=== PATIENT | male | born 1990 | race African-American/Black ===

== ENCOUNTER 2018-12-17 05:32 | Inpatient (IN) | payer MEDICAID ==
[~2018-12-17] VITALS: Ht 175.3 cm; Wt 57.2 kg
[2018-12-17] MEDS ORDERED: IV NORMAL SALINE 1000 ML BAG IV ONE (05:45)
[2018-12-17 06:13] LABS: BASOPHILS # (AUTO) 0.1 K/uL (0.0-8.0); BASOPHILS % (AUTO) 1.5 % (0.0-2.0); EOSINOPHILS # (AUTO) 0.2 K/uL (0.0-0.7); EOSINOPHILS % (AUTO) 2.4 % (0.0-7.0); HEMATOCRIT 34.8 % (36.7-47.1); HEMOGLOBIN 11.3 g/dL (12.5-16.3); LYMPHOCYTES # (AUTO) 1.8 K/uL (20.0-40.0); LYMPHOCYTES % (AUTO) 23.7 % (20.5-51.5); MEAN CORPUSCULAR HEMOGLOBIN 28.7 uug (23.8-33.4); MEAN CORPUSCULAR HGB CONC 32 g/dL (32.5-36.3); MEAN CORPUSCULAR VOLUME 88.6 fL (73.0-96.2); MONOCYTES # (AUTO) 0.7 K/uL (2.0-10.0); MONOCYTES % (AUTO) 9.6 % (0.0-11.0); NEUTROPHILS # (AUTO) 4.8 K/uL (1.8-8.9); NEUTROPHILS % (AUTO) 62.8 % (38.5-71.5); PLATELET COUNT (AUTO) 335 K/uL (152-348); RED BLOOD CELL COUNT(AUTO) 3.93 MIL/uL (4.06-5.63); WHITE BLOOD COUNT (AUTO) 7.6 K/uL (3.6-10.2)
--- NOTE | 2018-12-17 06:13 | NUR ---
IV removed by pt. Catheter intact and site benign. Pressure and 4x4 gauze applied to site. No bleeding noted.
[2018-12-17 06:23] LABS: POTASSIUM 4.3 mmol/L (3.5-5.1)
[2018-12-17 06:28] LABS: BILIRUBIN,DIRECT 0.1 mg/dL (0.0-0.2); BILIRUBIN,TOTAL 0.2 mg/dL (0.2-1.0); TOTAL PROTEIN, SERUM 8.1 g/dL (6.4-8.2)
[2018-12-17 06:31] LABS: ETHANOL < 3 MG/DL (0-0)
[2018-12-17 06:41] LABS: ACETAMINOPHEN < 2.0 ug/mL (10-30)
[2018-12-17 06:47] LABS: *BILIRUBIN,URIN NEGATIVE (NEGATIVE); *BLOOD, URINE NEGATIVE (NEGATIVE); *CLARITY,URINE CLEAR (CLEAR); *COLOR,URINE YELLOW (YELLOW); *KETONES,URINE NEGATIVE (NEGATIVE); *UROBILINOGEN,URINE 0.2 E.U./dl (NORMAL); LEUKOCYTE ESTERASE ,URINE NEGATIVE (NEGATIVE); NITRITE, URINE NEGATIVE (NEGATIVE); PH,URINE 6.5 (5.0-8.0); UGLUCOSE NEGATIVE (NEGATIVE)
[2018-12-17 07:01] LABS: *AMPHETAMINE, URINE NEGATIVE (NEGATIVE); *BARBITURATE, URINE NEGATIVE (NEGATIVE); *CANNABINOID, URINE NEGATIVE (NEGATIVE); *COCCAINE, URINE NEGATIVE (NEGATIVE); *OPIATE, URINE NEGATIVE (NEGATIVE); *PHENCYCLIDINE SCREEN,URINE NEGATIVE (NEGATIVE)
--- NOTE | 2018-12-17 07:27 | NUR ---
RECEIVED SHIFT REPORT FROM JESSIE DESIR. PT RESTING IN BED COMFORTABLY AT THIS TIME. LUISA RUBALCAVA, CRISIS UNIVERSITY DEMONSTRATOR, CALLED FOR PSYCH EVAL PER ER MD'S REQUEST. ETA 1 HOUR.
--- NOTE | 2018-12-17 07:59 | NUR ---
PT PROVIDED W/ A BREAKFAST MEAL TRAY.
--- NOTE | 2018-12-17 09:03 | NUR ---
LUISA RUBALCAVA, CRISIS JEWELRY CUTTER, IN ER FOR PT EVAL.
--- NOTE | 2018-12-17 09:31 | NUR ---
PAGED EPIC FOR PANEL CALL - AWAITING CALLBACK. ATTEMPT 1.
[2018-12-17] MEDS ORDERED: MORPHINE SULFATE 2 MG/1 ML DISP.SYRIN IV ONE (09:45)
[2018-12-17] MEDS ORDERED: MORPHINE SULFATE 2 MG/1 ML DISP.SYRIN ONE (09:46)
--- NOTE | 2018-12-17 09:51 | NUR ---
ER SPEAKING W/ EVERTON TAM ON PHONE RE PT'S ADMISSION.
--- NOTE | 2018-12-17 10:00 | NUR ---
ADMITTING REPORT GIVEN TO GALLITO DESIR.
--- NOTE | 2018-12-17 10:03 | NUR ---
Pt. admitted to [facility], under care of EVERTON TAM. Belongs List completed
[2018-12-17 10:30] VITALS: BP 122/72
--- NOTE | 2018-12-17 10:30 | NUR ---
patient got to the unit from er, sleeping in bed w/o any distress, VS are WNL but HR is a little high 105, patient asked to leave him along for few hours so he can rest. will follow up with adm. questions per request
[2018-12-17 11:12] VITALS: BP 118/80
[2018-12-17] MEDS ORDERED: Z GUARD REMEDY PASTE 57 GM TUBE TOP PRN (11:30)
[2018-12-17] MEDS ORDERED: ONDANSETRON 4 MG/2 ML VIAL IV PRN (11:30)
[2018-12-17] MEDS ORDERED: ACETAMINOPHEN 325 MG TABLET PO PRN (11:30)
[2018-12-17] MEDS ORDERED: MAGNESIUM HYDROXIDE 30 ML LIQUID UDC PO PRN (11:30)
[2018-12-17] MEDS ORDERED: ZOLPIDEM 5 MG TABLET PO PRN (11:30)
[2018-12-17] MEDS ORDERED: HYDROCODONE/APAP 5-325MG TABLET PO PRN (11:30)
[2018-12-17] MEDS: IV NS 1000 ML 1,000 ML IV PRN (12:51)
[2018-12-17] MEDS: MORPHINE SULFATE 2 MG/1 ML DISP.SYRIN IV PRN ×3 (12:52→21:06)
[2018-12-17 15:12] VITALS: BP 134/77
--- NOTE | 2018-12-17 18:25 | NUR ---
Patient is cooperative a/o 2, sometime gets dishevelled, complains of pain and points to his right pelvic area Care plan initiated No distress at the moment Safety reinforced
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
[2018-12-17 19:28] VITALS: BP 100/64
--- NOTE | 2018-12-17 20:50 | NUR ---
PIV PULLED OUT OF LEFT WRIST; CATHETER INTACT; REINSERTED PIV 22 GUAGE ON RIGHT HAND; PIV PATENT AND INTACT
--- NOTE | 2018-12-17 23:59 | NUR ---
IV SPREADSHEET RECONCILIATION REFLECTS THAT AN 1000 mL NS IVF RUNNING @ 75 mL/HR WAS HUNG AT 12:51 PM WITH NO FURTHER UPDATES PRIOR TO 7A-7P SHIFT. TOTAL RUN FROM 12:51 PM TO 19:00 WOULD BE 450mL. TOTAL NS IVF RUN FROM 19:00 to 23:59 375mL FOR A TOTAL OF 825mL Addendum: 12/18/18 at 0323 by HOLDEN CERVANTES RN IV SPREADSHEET RECONCILIATION REFLECTS THAT AN 1000mL BAG OF IVF RUNNING AT 75mL/HR WS HUNG AT 12:51 PM WITH NO FURTHER UPDATES FROM THE [id number] SHIFT ON THE IV SPREADSHEET. TOTAL IVF RUN FROM 12:51P UNTIL CHANGE OF SHIFT AT 19:00 WOULD BE 450mL. TOTAL NS IVF RUN FROM 19:00 TO 23:59 WAS 375mL, FOR A TOTAL OF 825mL FROM THE TIME NS IVF WERE HUNG AT 12:51PM TO 23:59PM
--- NOTE | 2018-12-18 02:00 | NUR ---
NOTIFIED BY PATIENT THAT RIGHT HAND PIV WAS DISLODGED. NURSE FOUND PIV LAYING ON PATIENT'S COMPLETELY INTACT. NEW 22 G PIV PLACED LATERAL TO ORIGINAL PIV ON THE PATIENT'S RIGHT HAND. PIV PATENT AND INTACT. Addendum: 12/18/18 at 0317 by HOLDEN CERVANTES RN NURSE WOUND PIV LAYING ON PATIENT'S BED COMPLETELY INTACT Addendum: 12/18/18 at 8 by HOLDEN CERVANTES RN NURSE FOUND PIV LAYING ON PATIENT'S BED COMPLETELY INTACT
[2018-12-18] MEDS: MORPHINE SULFATE 2 MG/1 ML DISP.SYRIN IV PRN ×2 (02:11→06:20)
[2018-12-18] MEDS: IV NS 1000 ML 1,000 ML IV PRN (02:16)
[2018-12-18 03:43] VITALS: BP 123/69
--- NOTE | 2018-12-18 05:00 | NUR ---
PATIENT SLEPT INTERMITTENLY THROUGHOUT SHIFT. ALL COMPLAINTS OF PAIN WERE IMMEDIATELY ADDRESSED WITH PRESCRIBED MEDICATION AND WITHIN THE PARAMETERS OF THE PRESCRIPTION. SNACKS WERE PROVIDED AT PATIENT'S REQUEST. ALL NURSING NEEDS MET PROMPTLY. CALL LIGHT WITHIN REACH AT ALL TIMES. ENCOURAGED PATIENT TO REQUEST ASSISTANCE WHEN NEEDING TO AMBULATE. ALL DUE MEDS GIVEN PRESCRIBED AND TOLERATED WELL.
[2018-12-18 05:24] LABS: BASOPHILS % (AUTO) 0.7 % (0.0-2.0); EOSINOPHILS # (AUTO) 0.2 K/uL (0.0-0.7); EOSINOPHILS % (AUTO) 2.9 % (0.0-7.0); HEMATOCRIT 34.3 % (36.7-47.1); HEMOGLOBIN 11.2 g/dL (12.5-16.3); LYMPHOCYTES # (AUTO) 2.2 K/uL (20.0-40.0); LYMPHOCYTES % (AUTO) 31.7 % (20.5-51.5); MEAN CORPUSCULAR HEMOGLOBIN 29.2 uug (23.8-33.4); MEAN CORPUSCULAR HGB CONC 33 g/dL (32.5-36.3); MONOCYTES # (AUTO) 0.5 K/uL (2.0-10.0); MONOCYTES % (AUTO) 7.6 % (0.0-11.0); NEUTROPHILS % (AUTO) 57.1 % (38.5-71.5); PLATELET COUNT (AUTO) 312 K/uL (152-348); RED BLOOD CELL COUNT(AUTO) 3.85 MIL/uL (4.06-5.63); WHITE BLOOD COUNT (AUTO) 6.9 K/uL (3.6-10.2)
[2018-12-18 05:40] LABS: CREATININE 1.1 mg/dL (0.6-1.3); MAGNESIUM 1.7 mg/dL (1.8-2.4); PHOSPHOROUS 4.6 mg/dL (2.5-4.9); POTASSIUM 3.9 mmol/L (3.5-5.1)
[2018-12-18 05:46] LABS: THYROID STIMULATING HORMONE 1.277 mIU/mL (0.358-3.740)
[2018-12-18 06:00] VITALS: BP 123/69
[2018-12-18] MEDS ORDERED: PANTOPRAZOLE SODIUM 40 MG TABLET.DR PO SCH (07:00)
[2018-12-18] MEDS: MAGNESIUM SULFATE/D5W 100 ML IV SCH ×2 (10:00→10:34)
[2018-12-18 11:09] VITALS: BP 125/75
--- NOTE | 2018-12-18 11:15 | NUR ---
PATIENT SAID THAT HE WANT TO LEAVE THE HOSPITAL, EDUCATION IS GIVEN ABOUT HIS OWN BENEFITS IF HE STAYS PATIENT STILL WAS VERY AGITATED AND HE SAID HE NEEDS TO GO TO GET HIS SUFF
[2018-12-18 11:19] VITALS: BP 125/75
--- NOTE | 2018-12-18 11:19 | NUR ---
PATIENT LEFT AMA, SAID THAT HE NEEDS TO GO TO GET HIS STUFF"ID AND FAMILY PHONE NUMBERS", HE WAS REFUSING TO TAKE HIS BP BUT REQ MORPHINE FOR PAIN. BEFORE GIVEN MORPHINE I HAD TO CHECK HIS BP. HE LEFT AND SIGNED AMA PAPERS NO DISTRESS TODAY NO COMPLAINS.
== END 2018-12-18 11:19 | disposition left against medical advice (07) | DRG 351 ==
LOC: ER 05:33 → MEDSURG3 10:04
PROVIDERS: ADMIT Hospitalist; ATTEND Hospitalist
DX: M25.551 Pain in right hip (principal); E43 Unspecified severe protein-calorie malnutrition; R26.2 Difficulty in walking, not elsewhere classified; W03.XXXA Other fall on same level due to collision with another person, initial encounter; Y92.89 Other specified places as the place of occurrence of the external cause; S32.82XD Multiple fractures of pelvis without disruption of pelvic ring, subsequent encounter for fracture with routine healing; S32.10XD Unspecified fracture of sacrum, subsequent encounter for fracture with routine healing; S32.049D Unspecified fracture of fourth lumbar vertebra, subsequent encounter for fracture with routine healing; S32.059D Unspecified fracture of fifth lumbar vertebra, subsequent encounter for fracture with routine healing; S22.42XD Multiple fractures of ribs, left side, subsequent encounter for fracture with routine healing; V89.2XXD Person injured in unspecified motor-vehicle accident, traffic, subsequent encounter; Z68.1 Body mass index [BMI] 19.9 or less, adult; Z91.19 Patient's noncompliance with other medical treatment and regimen; Z91.14 Patient's other noncompliance with medication regimen; M61.9 Calcification and ossification of muscle, unspecified; D64.9 Anemia, unspecified; Z87.891 Personal history of nicotine dependence; Z59.0 Homelessness
CPT/HCPCS: 36415; 70030-TC; 80307; 83690; 83735; 84100; 84443; 85025; 85730; 93005; A4663; G0378; G0480; G0480-TC; J2270; J3475; J7030

== ENCOUNTER 2018-12-20 17:22 | Inpatient (IN) | payer MEDICAID ==
[~2018-12-20] VITALS: Ht 172.7 cm; Wt 65.8 kg
[2018-12-20] MEDS ORDERED: HYDROMORPHONE 1 MG/1 ML DISP.SYRIN IV ONE (18:15)
[2018-12-20] MEDS ORDERED: ONDANSETRON 4 MG/2 ML VIAL IV ONE (18:15)
[2018-12-20] MEDS ORDERED: IV NORMAL SALINE 500 ML BAG IV ONE (18:15)
[2018-12-20] MEDS ORDERED: HYDROMORPHONE 1 MG/1 ML DISP.SYRIN ONE (18:33)
[2018-12-20] MEDS ORDERED: ONDANSETRON 4 MG/2 ML VIAL ONE (18:33)
[2018-12-20 18:45] LABS: BASOPHILS # (AUTO) 0.1 K/uL (0.0-8.0); BASOPHILS % (AUTO) 0.8 % (0.0-2.0); EOSINOPHILS # (AUTO) 0.2 K/uL (0.0-0.7); EOSINOPHILS % (AUTO) 2.5 % (0.0-7.0); HEMATOCRIT 33.8 % (36.7-47.1); LYMPHOCYTES # (AUTO) 2.5 K/uL (20.0-40.0); MEAN CORPUSCULAR HEMOGLOBIN 29.1 uug (23.8-33.4); MEAN CORPUSCULAR HGB CONC 33 g/dL (32.5-36.3); MEAN CORPUSCULAR VOLUME 89.1 fL (73.0-96.2); MONOCYTES # (AUTO) 0.7 K/uL (2.0-10.0); MONOCYTES % (AUTO) 9.5 % (0.0-11.0); NEUTROPHILS # (AUTO) 4.1 K/uL (1.8-8.9); NEUTROPHILS % (AUTO) 54.2 % (38.5-71.5); PLATELET COUNT (AUTO) 290 K/uL (152-348); WHITE BLOOD COUNT (AUTO) 7.5 K/uL (3.6-10.2)
[2018-12-20 18:57] LABS: CREATININE 0.9 mg/dL (0.6-1.3); POTASSIUM 3.5 mmol/L (3.5-5.1)
[2018-12-20 19:03] LABS: BILIRUBIN,DIRECT 0.1 mg/dL (0.0-0.2); BILIRUBIN,TOTAL 0.2 mg/dL (0.2-1.0); TOTAL PROTEIN, SERUM 7.4 g/dL (6.4-8.2)
[2018-12-20 20:29] VITALS: BP 124/76
[2018-12-20] MEDS ORDERED: ZOLPIDEM 5 MG TABLET PO PRN (21:00)
[2018-12-20] MEDS ORDERED: MAGNESIUM HYDROXIDE 30 ML LIQUID UDC PO PRN (21:00)
[2018-12-20] MEDS ORDERED: ACETAMINOPHEN 325 MG TABLET PO PRN (21:00)
[2018-12-20] MEDS ORDERED: LORAZEPAM 2 MG/1 ML VIAL IV PRN (21:00)
[2018-12-20] MEDS ORDERED: ONDANSETRON 4 MG/2 ML VIAL IV PRN (21:00)
[2018-12-20] MEDS: DOCUSATE SODIUM 100 MG CAPSULE PO SCH (21:00)
[2018-12-20] MEDS: HYDROMORPHONE 1 MG/1 ML DISP.SYRIN IV PRN (21:27)
[2018-12-20 21:29] LABS: *AMPHETAMINE, URINE NEGATIVE (NEGATIVE); *BARBITURATE, URINE NEGATIVE (NEGATIVE); *CANNABINOID, URINE NEGATIVE (NEGATIVE); *COCCAINE, URINE NEGATIVE (NEGATIVE); *OPIATE, URINE POSITIVE (NEGATIVE); *PHENCYCLIDINE SCREEN,URINE NEGATIVE (NEGATIVE)
[2018-12-20] MEDS: ENOXAPARIN SODIUM 40 MG/0.4 ML DISP.SYRIN SQ SCH (21:52)
[2018-12-21] MEDS: HYDROCODONE/APAP 5-325MG TABLET PO PRN ×4 (00:31→20:57)
[2018-12-21] MEDS: HYDROMORPHONE 1 MG/1 ML DISP.SYRIN IV PRN ×6 (01:37→23:40)
[2018-12-21] MEDS: PANTOPRAZOLE SODIUM 40 MG TABLET.DR PO SCH (06:04)
[2018-12-21 06:35] VITALS: BP 141/68
[2018-12-21 06:39] LABS: BASOPHILS # (AUTO) 0.1 K/uL (0.0-8.0); BASOPHILS % (AUTO) 1.1 % (0.0-2.0); EOSINOPHILS # (AUTO) 0.2 K/uL (0.0-0.7); EOSINOPHILS % (AUTO) 3.7 % (0.0-7.0); HEMATOCRIT 34.4 % (36.7-47.1); HEMOGLOBIN 11.4 g/dL (12.5-16.3); LYMPHOCYTES # (AUTO) 2.3 K/uL (20.0-40.0); LYMPHOCYTES % (AUTO) 39.2 % (20.5-51.5); MEAN CORPUSCULAR HEMOGLOBIN 29.6 uug (23.8-33.4); MEAN CORPUSCULAR HGB CONC 33 g/dL (32.5-36.3); MEAN CORPUSCULAR VOLUME 89.5 fL (73.0-96.2); MONOCYTES # (AUTO) 0.6 K/uL (2.0-10.0); MONOCYTES % (AUTO) 10.3 % (0.0-11.0); NEUTROPHILS # (AUTO) 2.6 K/uL (1.8-8.9); NEUTROPHILS % (AUTO) 45.7 % (38.5-71.5); PLATELET COUNT (AUTO) 302 K/uL (152-348); RED BLOOD CELL COUNT(AUTO) 3.85 MIL/uL (4.06-5.63); WHITE BLOOD COUNT (AUTO) 5.7 K/uL (3.6-10.2)
[2018-12-21 07:01] LABS: BILIRUBIN,TOTAL 0.2 mg/dL (0.2-1.0); MAGNESIUM 1.9 mg/dL (1.8-2.4); POTASSIUM 3.8 mmol/L (3.5-5.1); TOTAL PROTEIN, SERUM 7.4 g/dL (6.4-8.2)
[2018-12-21 09:49] VITALS: BP 119/74
[2018-12-21 11:32] VITALS: BP 119/67
[2018-12-21 15:32] VITALS: BP 130/87
[2018-12-21] MEDS ORDERED: GADODIAMIDE 5 MMOL/10 ML VIAL ONE (16:42)
[2018-12-21] MEDS ORDERED: GADODIAMIDE 2.5 MMOL/5 ML VIAL ONE (16:42)
[2018-12-21 20:29] VITALS: BP 123/89
[2018-12-21] MEDS: DOCUSATE SODIUM 100 MG CAPSULE PO SCH (20:36)
[2018-12-21] MEDS: ENOXAPARIN SODIUM 40 MG/0.4 ML DISP.SYRIN SQ SCH (20:36)
[2018-12-22] MEDS: HYDROCODONE/APAP 5-325MG TABLET PO PRN ×2 (01:22→11:07)
[2018-12-22] MEDS: HYDROMORPHONE 1 MG/1 ML DISP.SYRIN IV PRN ×2 (03:45→07:45)
[2018-12-22 05:39] VITALS: BP 122/65
[2018-12-22 06:05] LABS: BASOPHILS % (AUTO) 0.7 % (0.0-2.0); EOSINOPHILS # (AUTO) 0.2 K/uL (0.0-0.7); EOSINOPHILS % (AUTO) 3.6 % (0.0-7.0); HEMATOCRIT 34.9 % (36.7-47.1); HEMOGLOBIN 11.5 g/dL (12.5-16.3); LYMPHOCYTES % (AUTO) 36.4 % (20.5-51.5); MEAN CORPUSCULAR HEMOGLOBIN 29.4 uug (23.8-33.4); MEAN CORPUSCULAR HGB CONC 33 g/dL (32.5-36.3); MEAN CORPUSCULAR VOLUME 89.1 fL (73.0-96.2); MONOCYTES # (AUTO) 0.5 K/uL (2.0-10.0); MONOCYTES % (AUTO) 8.7 % (0.0-11.0); NEUTROPHILS # (AUTO) 2.7 K/uL (1.8-8.9); NEUTROPHILS % (AUTO) 50.6 % (38.5-71.5); PLATELET COUNT (AUTO) 272 K/uL (152-348); RED BLOOD CELL COUNT(AUTO) 3.91 MIL/uL (4.06-5.63); WHITE BLOOD COUNT (AUTO) 5.4 K/uL (3.6-10.2)
[2018-12-22 06:08] LABS: CARBON DIOXIDE 30 mmol/L (21-32); CHLORIDE 103 mmol/L (98-107); CREATININE 0.8 mg/dL (0.6-1.3); GLUCOSE 83 mg/dL (74-106); MAGNESIUM 1.8 mg/dL (1.8-2.4); PHOSPHOROUS 5.1 mg/dL (2.5-4.9); UREA NITROGEN, BLOOD 10 mg/dL (7-18)
[2018-12-22] MEDS: PANTOPRAZOLE SODIUM 40 MG TABLET.DR PO SCH (06:27)
[2018-12-22] MEDS ORDERED: FERROUS SULFATE 325 MG TABEC PO SCH (09:45)
[2018-12-22 10:54] LABS: FERRITIN 526 ng/mL (26-388)
[2018-12-22] MEDS ORDERED: CLOTRIMAZOLE 1% CREAM 30 GM TUBE TOP SCH (11:45)
[2018-12-22 11:48] VITALS: BP 101/56
== END 2018-12-22 12:35 | disposition home or self-care (01) | DRG 347 ==
LOC: ER 17:22 → MEDSURG3 20:02
PROVIDERS: ADMIT Internal Medicine; ATTEND Nurse Practitioner Acute Care
DX: S32.19XA Other fracture of sacrum, initial encounter for closed fracture (principal); E44.0 Moderate protein-calorie malnutrition; S32.2XXA Fracture of coccyx, initial encounter for closed fracture; E83.39 Other disorders of phosphorus metabolism; M25.551 Pain in right hip; F17.210 Nicotine dependence, cigarettes, uncomplicated; M48.061 Spinal stenosis, lumbar region without neurogenic claudication; S22.42XD Multiple fractures of ribs, left side, subsequent encounter for fracture with routine healing; X58.XXXA Exposure to other specified factors, initial encounter; Y92.89 Other specified places as the place of occurrence of the external cause; S32.059D Unspecified fracture of fifth lumbar vertebra, subsequent encounter for fracture with routine healing; S32.592D Other specified fracture of left pubis, subsequent encounter for fracture with routine healing; S32.82XD Multiple fractures of pelvis without disruption of pelvic ring, subsequent encounter for fracture with routine healing; S32.591D Other specified fracture of right pubis, subsequent encounter for fracture with routine healing; X58.XXXD Exposure to other specified factors, subsequent encounter; M61.9 Calcification and ossification of muscle, unspecified; Y04.2XXD Assault by strike against or bumped into by another person, subsequent encounter; D64.9 Anemia, unspecified; Z68.22 Body mass index [BMI] 22.0-22.9, adult; Z59.0 Homelessness; R26.2 Difficulty in walking, not elsewhere classified
CPT/HCPCS: 36415; 70030-TC; 71045; 72148; 72170; 80307; 83550; 83690; 83735; 84100; 85025; 85730; 87400; A4663; A9579; G0378; J1170; J1650; J2405; J7030